=== PATIENT | male | born 1995 | race Caucasian/White ===

== ENCOUNTER 2024-06-26 06:56 | Emergency (ER) | payer BC, OTHER ==
[~2024-06-26] VITALS: Ht 188 cm; Wt 79.4 kg
[2024-06-26] MEDS ORDERED: GABA800T11 PO (07:11)
[2024-06-26] MEDS ORDERED: OXCA300T4 PO (07:11)
[2024-06-26] MEDS ORDERED: LACO50TA2 PO ×2 (07:11)
[2024-06-26] MEDS ORDERED: DIPH25CA83 PO (07:11)
[2024-06-26] MEDS ORDERED: VALB80CA PO (07:11)
[2024-06-26] MEDS ORDERED: OXYC30TA2 PO (07:11)
[2024-06-26] MEDS ORDERED: CLON0.3T PO (07:11)
[2024-06-26] MEDS ORDERED: OXYC10TA49 PO (07:11)
[2024-06-26] MEDS ORDERED: HYDROMORPHONE 1 MG/1 ML DISP.SYRIN ONE ×2 (08:16→09:03)
[2024-06-26] MEDS ORDERED: diphenhydrAMINE 50 MG/1 ML VIAL ONE ×2 (08:16→09:02)
[2024-06-26] MEDS: HYDROMORPHONE 1 MG/1 ML DISP.SYRIN IV ONE ×2 (08:20→09:09)
[2024-06-26] MEDS: diphenhydrAMINE 50 MG/1 ML VIAL IV ONE ×2 (08:26→09:09)
[2024-06-26 09:30] VITALS: BP 131/77; O2SAT 98
== END 2024-06-26 09:43 | disposition home or self-care (01) ==
LOC: ER 07:04
DX: G24.01 Drug induced subacute dyskinesia (principal); R56.9 Unspecified convulsions; Z79.899 Other long term (current) drug therapy
CPT/HCPCS: 99284; 96374; 96375; 96376; J1200 ×2; J1171 ×2; A4606; A4663